=== PATIENT | male | born 1970 | race Hispanic/Latino ===

== ENCOUNTER 2024-02-25 18:50 | Emergency (ER) | payer OTHER ==
[~2024-02-25] VITALS: Ht 177.8 cm; Wt 89.4 kg
[2024-02-25 20:18] LABS: APPEARANCE,URINE CLOUDY (CLEAR); BILIRUBIN,URINE 0.5 mg/dL (NEGATIVE); COLOR,URINE YELLOW (YELLOW); GLUCOSE, URINE (UA) NEGATIVE (NEGATIVE); KETONES,URINE NEGATIVE (NEGATIVE); LEUKOCYTE ESTERASE ,URINE 75 Leu/uL (NEGATIVE); NITRATE,URINE NEGATIVE (NEGATIVE); OCCULT BLOOD,URINE LARGE (NEGATIVE); PROTEIN,URINE 100 mg/dL (NEGATIVE); UROBILINOGEN,URINE 6 mg/dL (0.2-1.0)
[2024-02-25 20:21] LABS: ADD UA MICROSCOPIC YES
[2024-02-25 20:26] LABS: BASOPHILS # (AUTO) 0.05 K/uL (0.00-0.20); BASOPHILS % (AUTO) 0.3 % (0.0-5.0); EOSINOPHILS # (AUTO) 0.02 K/uL (0.00-0.70); EOSINOPHILS % (AUTO) 0.1 % (0.0-8.0); HEMATOCRIT 47.7 % (42-54); IMMATURE GRANULOCYTE ABSOLUTE 0.08 K/uL (0-1); LYMPHOCYTES # (AUTO) 1.2 K/uL (1.0-4.8); LYMPHOCYTES % (AUTO) 8.2 % (21.0-51.0); MEAN CORPUSCULAR HEMOGLOBIN 29.9 pg (27.0-33.0); MEAN CORPUSCULAR HGB CONC 33.8 g/dL (32.0-36.0); MEAN CORPUSCULAR VOLUME 88.7 fL (79-99); MONOCYTES # (AUTO) 1.7 K/uL (0.1-1.0); MONOCYTES % (AUTO) 11.7 % (3.0-13.0); NEUTROPHILS # (AUTO) 11.7 K/uL (1.8-7.7); NEUTROPHILS % (AUTO) 79.2 % (40.0-77.0); PLATELET COUNT (AUTO) 224 K/uL (130-400); RED BLOOD CELL COUNT(AUTO) 5.38 MIL/uL (4.50-6.20); RED CELL DISTRIBUTION WIDTH 14.4 % (11.0-15.5); WHITE BLOOD COUNT (AUTO) 14.8 K/uL (4.8-10.8)
[2024-02-25] MEDS: ACETAMINOPHEN 500 MG TABLET PO ONE (20:35)
[2024-02-25] MEDS: 0.9%NACL 1000ML 1,000 ML IV ONE (20:35)
[2024-02-25 20:36] LABS: CREATININE 1.4 mg/dL (0.5-1.3); POTASSIUM 4.1 mmol/L (3.5-5.1)
[2024-02-25 20:41] LABS: ALBUMIN 2.9 g/dL (3.5-5.0); BILIRUBIN,TOTAL 1.2 mg/dL (0.2-1.0); TOTAL PROTEIN, SERUM 8.4 g/dL (6.0-8.3)
[2024-02-25 20:41] LABS: MUCUS,URINE RARE LPF (None Seen); RBC,URINE TNTC /HPF (0-1); WBC,URINE 26-50 /HPF (0-1)
[2024-02-25] MEDS: 0.9%NACL 1000ML 1,000 ML IV SCH (21:28)
[2024-02-25] MEDS: CEFTRIAXONE 2GM VIAL IVPB SCH (21:28)
[2024-02-25] MEDS: ONDANSETRON 4MG INJ ONE (21:40)
[2024-02-25] MEDS: MORPHINE 4 MG SYG ONE (21:41)
[2024-02-25] MEDS: ONDANSETRON 4MG INJ IVP ONE (21:46)
[2024-02-25] MEDS: MORPHINE 4 MG SYG IVP ONE (21:46)
[2024-02-25 21:59] LABS: SARS-CoV-2, RNA, NAAT NEGATIVE SARS CoV-2 (NEGATIVE)
[2024-02-25] MEDS ORDERED: CEPH500B PO (22:49)
[2024-02-25 22:53] VITALS: BP 145/70; PULSE 89; RESP 17; O2SAT 96
== END 2024-02-25 23:02 | disposition home or self-care (01) ==
LOC: EDH 18:50
DX: N39.0 Urinary tract infection, site not specified (principal); Z20.822 Contact with and (suspected) exposure to COVID-19; E86.0 Dehydration; D72.89 Other specified disorders of white blood cells; E87.1 Hypo-osmolality and hyponatremia; E87.8 Other disorders of electrolyte and fluid balance, not elsewhere classified; R74.01 Elevation of levels of liver transaminase levels; Z79.2 Long term (current) use of antibiotics
CPT/HCPCS: 99285; 74176; 96365; 76705; 96375; 87635; 96361; 82550; 80053; 83690; 85025; 87040 ×2; 87086; 83605; 81001; 36415; 84145; J7030; J0696; J2405; J2270